=== PATIENT | male | born 2000 | race Caucasian/White ===

== ENCOUNTER 2018-05-11 14:25 | Emergency (ER) | payer OTHER ==
[2018-05-11] MEDS ORDERED: Famotidine TAB* 20 MG PO ONE (15:54)
[2018-05-11] MEDS ORDERED: predniSONE TAB* 20 MG PO ONE (15:54)
--- NOTE | 2018-05-11 16:02 | ED ---
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 He noticed that soon a felt numb and he had a number of hives scattered on his upper body. He got out of there and came to the ER where he had spontaneous resolution of symptoms. He does relate that one week ago he was treated with permethrin cream for similar episode but he had red itchy rash in several places on his body that was diagnosed as scabies. He has none of those red bumps left after using 2 treatments of permethrin. He denies any lip, tongue swelling or difficulty swallowing. He never had any difficulty breathing. - History of Current Complaint Chief Complaint: EDGeneral Time Seen by Provider: 05/11/18 15:49 Hx Obtained From: Patient Pain Intensity: 0 - Allergies/Home Medications Allergies/Adverse Reactions: Allergies Allergy/AdvReac Type Severity Reaction Status Date / Time No Known Allergies Allergy Verified 05/11/18 14:51 PMH/Surg Hx/FS Hx/Imm Hx Previously Healthy: Yes Infectious Disease History: No Infectious Disease History: Denies: Traveled Outside the [place] in Last 30 Days - Family History Known Family History: Positive: Other - noncontributory - Social History Occupation: Student Hx Substance Use: No Review of Systems Negative: Fever Negative: Sore Throat Negative: Shortness Of Breath, Cough Positive: Edema Positive: Other - hives, itching All Other Systems Reviewed And Are Negative: Yes Physical Exam Triage Information Reviewed: Yes Vital Signs On Initial Exam: Initial Vitals Temp Pulse Resp BP Pulse Ox 98.2 F 94 18 127/97 99 05/11/18 14:47 05/11/18 14:47 05/11/18 14:47 05/11/18 14:47 05/11/18 14:47 Vital Signs Reviewed: Yes Appearance: Positive: Well-Appearing, No Pain Distress Skin: Positive: Warm, Dry, Other - No urticaria or rash Head/Face: Positive: Normal Head/Face Inspection Eyes: Positive: EOMI ENT: Positive: Pharynx normal, Other - No lip or tongue swelling Neck: Positive: Supple Respiratory/Lung Sounds: Positive: Clear to Auscultation, Breath Sounds Present Cardiovascular: Positive: RRR Musculoskeletal: Positive: Strength/ROM Intact Neurological: Positive: Normal, Sensory/Motor Intact, Alert, Oriented to Person Place, Time Psychiatric: Positive: Normal AVPU Assessment: Alert Diagnostics - Vital Signs Vital Signs Temp Pulse Resp BP Pulse Ox 05/11/18 14:47 98.2 F 94 18 127/97 99 - Laboratory Lab Statement: Any lab studies that have been ordered have been reviewed, and results considered in the medical decision making process. Allergic Reaction Course/Dx - Course Course Of Treatment: Patient with cold-induced urticaria. This is self resolved after being out in the heat. Treated with Pepcid and prednisone here. Short course of similar. Follow-up with [facility]. - Diagnoses Provider Diagnoses: Urticaria due to cold Discharge - Sign-Out/Discharge Documenting (check all that apply): Patient Departure - Discharge Plan Condition: Improved Disposition: HOME Prescriptions: Famotidine TAB* [Pepcid 20 MG TAB*] 20 mg PO BID #20 tab hydrOXYzine pamoate [Vistaril] 25 mg PO TID PRN #20 capsule PRN Reason: allergy/itching predniSONE TAB* [Deltasone TAB*] 50 mg PO DAILY #3 tab Patient Education Materials: Urticaria (ED) Referrals: [facility] [Z.BUSINESS, APPLICATION, OTHER] - Additional Instructions: Follow-up on Sunday with [facility]. You may need allergy testing. Repeat the permethrin treatment in a week after the first dose if able. Return if worse, difficulty breathing, symptoms or other concerns as discussed. - Billing Disposition and Condition Condition: IMPROVED Disposition: Home
[2018-05-11 16:17] VITALS: BP 123/90
== END 2018-05-11 16:10 | disposition home or self-care (01) ==
LOC: ED 14:25
DX: L50.2 Urticaria due to cold and heat (principal)
CPT/HCPCS: 99282; A9270-GY; J7512

== ENCOUNTER → 2018-09-07 13:20 | Emergency (ER) | payer OTHER ==
[~2018-09-07 13:20] MED LIST: Acetaminophen TAB* 325 MG PO ONE; Azithromycin IV(*) 500 MG in NS 0.9% 250 ML* 250 ML IVPB ONE; Clarithromycin TAB* 500 MG PO ONE; NS 0.9% 1000 ML* 1,000 ML IV ONE; guaiFENesin/CODIEN 100MG-10MG* 5 ML UDC PO ONE
--- NOTE | 2018-09-07 15:53 | ED ---
Influenza-Like Illness - HPI Summary HPI Summary: This patient is a 17 year old M presenting to [facility] with a chief complaint of flu-like symptoms since 3 weeks ago. He notes that he played rugby in the cold and pouring rain, and that night he made out with a couple of people, had vaginal and oral sex with a girl. Then, 2 days later he experienced severe GARCIA, and the day after, a severe sore throat with dysphagia. The pt went to [facility] who gave the pt abx but there was no sx alleviation. He returned a couple of days later and they provided an oral steroid, which greatly alleviated sx. They helped so much that he believed he was cured and skipped the next day of abx, and then woke up next day with bad cough. He endorses a fever with a max temperature of 104, diarrhea aggravated by eating (new onset this week), insomnia, nausea (new onset this week), emesis (new onset this week) , lymph adenopathy (resolved), decreased appetite, and a weight loss of 20 lbs during his illness. He notes that he had been tested for mono, strep, and flu 2 weeks ago, all of which came back (-). - History of Current Complaint Chief Complaint: EDFluSymptoms Time Seen by Provider: 09/07/18 14:59 Hx Obtained From: Patient Onset/Duration: Gradual Onset, Lasting Weeks, Still Present Severity: Moderate Associated Signs & Symptoms: Fever, T Max - 104, F/C - F, Cough, Sore Throat, Headache, Vomiting, Diarrhea - Allergy/Home Medications Allergies/Adverse Reactions: Allergies Allergy/AdvReac Type Severity Reaction Status Date / Time No Known Allergies Allergy Verified 05/11/18 14:51 PMH/Surg Hx/FS Hx/Imm Hx Endocrine/Hematology History: Denies: Hx Sickle Cell Disease Cardiovascular History: Denies: Hx Pacemaker/ICD Respiratory History: Denies: Hx Lung Cancer Sensory History: Denies: Hx Legally Blind, Hx Deafness Opthamlomology History: Denies: Hx Legally Blind EENT History: Denies: Hx Deafness Psychiatric History: Denies: Hx Autism Infectious Disease History: No Infectious Disease History: Denies: Traveled Outside the [place] in Last 30 Days - Family History Known Family History: Negative: Blood Disorder - Social History Occupation: Student Lives: Dormitory/Roommates Alcohol Use: Weekly Hx Substance Use: Yes Substance Use Type: Reports: Marijuana Smoking Status (MU): Current Some Day Smoker Review of Systems Positive: Fever, Other - recent 20 lb weight loss Positive: Sore Throat, Other - lymph adenopathy (resolved) Positive: Shortness Of Breath, Cough Positive: Vomiting, Diarrhea, Nausea, Other - decreased appetite Positive: no symptoms reported Positive: Headache All Other Systems Reviewed And Are Negative: Yes Physical Exam - Summary Physical Exam Summary: Appearance: The patient is well-nourished in no acute distress and in no acute pain. Skin: The skin is warm and dry and skin color reflects adequate perfusion. HEENT: The head is normocephalic and atraumatic. The pupils are equal and reactive. The conjunctivae are clear and without drainage. Nares are patent and without drainage. Mouth reveals moist mucous membranes and the throat is without erythema and exudate. The external ears are intact. The ear canals are patent and without drainage. The tympanic membranes are intact. Neck: The neck is supple with full range of motion and non-tender. There are no carotid bruits. There is no neck vein distension. No lymph adenopathy. Respiratory: Chest is non-tender. Lungs are clear to auscultation and breath sounds are symmetrical and equal. Cardiovascular: Heart rate is tachycardic. There is no murmur or rub auscultated. There is no peripheral edema and pulses are symmetrical and equal. Abdomen: The abdomen is soft and non-tender. There are normal bowel sounds heard in all four quadrants and there is no organomegaly palpated. Musculoskeletal: There is no back tenderness noted. Extremities are non-tender with full range of motion. There is good capillary refill. There is no peripheral edema or calf tenderness elicited. Neurological: Patient is alert and oriented to person, place and time. The patient has symmetrical motor strength in all four extremities. Cranial nerves are grossly intact. Deep tendon reflexes are symmetrical and equal in all four extremities. Psychiatric: The patient has an appropriate affect and does not exhibit any anxiety or depression. Triage Information Reviewed: Yes Vital Signs On Initial Exam: Initial Vitals Temp Pulse Resp BP Pulse Ox 102.4 F 113 18 120/65 95 09/07/18 13:25 09/07/18 13:25 09/07/18 13:25 09/07/18 13:25 09/07/18 13:25 Vital Signs Reviewed: Yes Diagnostics - Vital Signs Vital Signs Temp Pulse Resp BP Pulse Ox 09/07/18 13:25 102.4 F 113 18 120/65 95 - Laboratory Result Diagrams: 09/07/18 15:48 09/07/18 15:48 Lab Statement: Any lab studies that have been ordered have been reviewed, and results considered in the medical decision making process. - Radiology CXR Radiology Interpretation Completed By: Radiologist Summary of Radiographic Findings: Left midlung consolidation. Dr. Skinner has reviewed this report. Flu Symptom Course/Dx - Course Course Of Treatment: Mr. King presented with a good story for a viral upper respiratory tract infection starting about 3 weeks ago. However he is not improved as he should and the concern is for a secondary bacterial infection. He was stable here and nontoxic in appearance with good vitals. His labs were reasonably good but chest x-ray did reveal an infiltrate. He was treated here with Biaxin and guaifenesin with codeine and prescriptions were sent. Recommend close follow-up at [place] - Diagnoses Provider Diagnoses: PNA (pneumonia) Discharge - Sign-Out/Discharge Documenting (check all that apply): Patient Departure - discharge - Discharge Plan Condition: Stable Disposition: HOME Prescriptions: Clarithromycin TAB* [Biaxin TAB*] 500 mg PO BID #20 tab Clarithromycin TAB* [Biaxin TAB*] 500 mg PO BID #20 tab Codeine Phosphate/Guaifenesin [Guaiatussin AC Liquid] 5 ml PO Q4HR #120 ml MDD 30 cc Codeine Phosphate/Guaifenesin [Guaiatussin AC Liquid] 5 ml PO Q4HR #120 ml MDD 30 cc Patient Education Materials: Pneumonia (ED) Forms: *School Release Referrals: [facility] @ [Outside] Additional Instructions: Follow up at [facility] in 2-3 days. Return to the emergency department for any new or worsening symptoms. - Billing Disposition and Condition Condition: STABLE Disposition: Home - Attestation Statements Document Initiated by Scribe: Yes Documenting Scribe: Yazan Cherry Provider For Whom Scribe is Documenting (Include Credential): Dr. Moi Skinner MD Scribe Attestation: Yazan Garg scribed for Dr. Moi Skinner MD on 09/08/18 at 1556. Scribe Documentation Reviewed: Yes Provider Attestation: The documentation as recorded by the Yazan collins accurately reflects the service I personally performed and the decisions made by me, Dr. Moi Skinner MD
[2018-09-07 16:07] LABS: ABS Basophils 0 10^3/ul (0-0.2); ABS Eosinophils 0 10^3/ul (0-0.6); ABS Lymphocytes 1.1 10^3/ul (1.0-4.8); ABS Monocytes 0.6 10^3/ul (0-0.8); ABS Neutrophils 6.9 10^3/ul (1.5-7.7); ABS Nucleated RBC 0 10^3/ul; Eosinophil % 0.4 % (0-6); Hematocrit 40 % (42-52); Hemoglobin 14.1 g/dl (14.0-18.0); Lymphocyte % 12.5 % (25-47); Mean Corpuscular HGB Conc 35 g/dl (31-36); Mean Corpuscular Hemoglobin 29 pg (27-31); Mean Corpuscular Volume 82 fL (80-94); Mean Platelet Volume 7.7 fL (7.4-10.4); Nucleated Red Blood Cells % 0; Platelet Count 238 10^3/ul (150-450); Red Cell Distribution Width 13 % (10.5-15); White Blood Count 8.6 10^3/ul (3.5-10.8)
[2018-09-07 16:12] LABS: INR 1.29 (0.77-1.02)
[2018-09-07 16:18] LABS: EGFR Non-African American 94.1 (>60)
[2018-09-07 18:20] VITALS: BP 132/74
== END | disposition home or self-care (01) ==
LOC: ED 13:20
DX: J18.9 Pneumonia, unspecified organism (principal); F17.210 Nicotine dependence, cigarettes, uncomplicated
CPT/HCPCS: 36415; 71045; 80053; 83605; 85025; 85610; 85730; 86140; 87040; 96361; 96374; 96375; 99283; A9270-GY; J0456